=== PATIENT | male | born 1980 | race Caucasian/White ===

== ENCOUNTER 2024-11-04 08:57 | Outpatient (OUT) | payer OTHER, SELFPAY ==
--- NOTE | 2024-11-04 09:07 | XR_ITS ---
The [address] [address] Patient Name: DOLLY PICHARDO MRN: [id number] date: 1980 Sex: M Assigned Patient Location: [facility] Current Patient Location: Accession/Order Number: [id number] Exam Date: 11/04/2024 09:15 Report Date: 11/05/2024 05:28 At the request of: GENARO PALMER Procedure: XR lumbar spine min 4V EXAMINATION: XR lumbar spine min 4V HISTORY: Low Back Pain COMPARISON: No relevant comparison available. FINDINGS: BONES: Mild degenerative facet arthropathy L4-L5, L5-S1. No significant spondylosis, scoliosis, fracture, or visible bony lesion. DISC SPACES: No significant disc height narrowing, subluxation, or endplate abnormality. PARASPINOUS: Negative. No paraspinous abnormality is seen. OTHER: Negative. XR/XR lumbar spine min 4V IMPRESSION: 1. Minimal degenerative facet arthropathy of the lower lumbar spine. 2. Consider MRI for further evaluation if symptoms persist. Electronically authenticated by: SEKOU STANLEY Date: 11/05/2024 05:28
== END 2024-11-04 08:58 | disposition home or self-care (01) ==
LOC: LAB 09:00 → RAD 09:04
PROVIDERS: PCP Nurse Practitioner Family; Visit Provider Nurse Practitioner Family
DX: M54.50 Low back pain, unspecified (principal)
CPT/HCPCS: 72110

== ENCOUNTER 2024-11-10 12:56 | Outpatient (RCR) | payer OTHER, SELFPAY | END 2024-12-08 08:10 | disposition home or self-care (01) | LOC: PT 12:56 | PROVIDERS: PCP Nurse Practitioner Family; Visit Provider Nurse Practitioner Family | DX: M54.50 Low back pain, unspecified (principal) | CPT/HCPCS: 97012; 97014; 97035; 97110; 97161 ==

== ENCOUNTER 2024-12-28 13:44 | Outpatient (OUT) | payer OTHER, SELFPAY ==
--- NOTE | 2024-12-28 | CONS_ITS ---
CONSULTATION DATE: 12/28/2024 TO: ROSA HowellP-C CHIEF COMPLAINT: Includes severe left sided lower back pain. HISTORY OF PRESENT ILLNESS: Review of systems, past medical/surgical history were obtained and documented on the health questionnaire and is available upon request. He is a 44-year-old male, reports having pain for several years. It occurred spontaneously, increased gradually to its present state. He reports the pain as being presently between 4-7/10 in severity, described as a deep aching pain with an occasional sharp shooting component. He described two different kinds of pain. He describes the pain in his left lower extremity as being a deep aching pain, which is exacerbated mainly when walking for prolonged periods of time. He reports having left lower back pain, which he describes as being quite sharp, and exacerbated primarily when working and performing twisting maneuvers with his trunk. Overall, he rates the pain as being 4-7/10. Denies any change in bowel and bladder habits or new sensorimotor changes in his lower extremities. His MARCO on today?s visit was 50%. MEDICATIONS: He is unable to tolerate ibuprofen secondary to GI distress. He uses Tylenol as well as marijuana on occasion. He completed physical therapy one month ago, and he reports this offered him a marginal reduction in his pain symptoms. EXAM: His examination is notable for patient having no clinical radiculopathy or myelopathy involving his lower extremity on today?s visit, but did have severe pain with lumbar facet joint loading maneuvers occurring bilaterally, worse on his left side, at L4-5 and L5-S1. He had positive left sided pelvic rock test and Gaenslen?s maneuver and FABERs sign with tenderness along his left SI joint with significant myalgia of his left gluteus medius with spasm. IMPRESSION: Our impression is patient appears to have chronic pain secondary to multiple etiologies: Lumbosacral spondylosis, facet joint loading pain clinically, and left sided L4-5 and L5-S1 myalgia with myofascial spasm of his gluteus medius. RECOMMENDATIONS: I recommend he start baclofen 10 mg pills, half to two and to proceed with diagnostic left sided L4-5, L5-S1 medial branch block under fluoroscopic guidance. As part of providing excellent, safe, comprehensive care, the following was completed at our patient's visit: 1. A medication reconciliation and review to ensure accurate knowledge of current/active medications, including asking our patients to inform us about any qwps-sxo-qbfeloa medications or herbal remedies/nutritional supplements/alternative remedies. 2. A review to specifically ensure our patients have had annual screening for: elevated body mass index (BMI, see intake chart for exact total), tobacco use, screening for depression, and screening for unhealthy alcohol use. When screening is concerning, patients are provided with education and the specific recommendation to discuss the concerning health issue and treatment options with their primary care provider VALENCIA
--- OUTSIDE RECORDS SUMMARY | 2024-12-28 13:49 | XMS_ITS | CCD ---
Author Organization [facility] [employer] [facility] Problems Problem Classification Problem Date Documented Da te Episodic/Chronic Conditions associated with dizziness or vertigo (3 sources) Dizziness; Translations: [Dizziness and giddiness] 05-05-2024 Episodic Malaise and fatigue (3 sources) Fatigue; Translations: [Other fatigue] 05-05-2024 Episodic Nonspecific chest pain (3 sources) Tight chest; Translations: [Other chest pain] 05-05-2024 Episodic Other screening for suspected conditions (not mental disorders or infectious disease) (3 sources) Patient encounter status; Translations: [Encounter for screening for lipoid disorders] 05-05-2024 Episodic Residual codes; unclassified (2 sources) Family history of cardiac disorder; Translations: [Family history of ischemic heart disease and other diseases of the circulatory system] 05-05-2024 Episodic Residual codes; unclassified (1 source) Family history of ischemic heart disease and other diseases of the circulatory system; Translations: [Family history of other cardiovascular diseases] 05-05-2024 Episodic Spondylosis; intervertebral disc disorders; other back problems (2 sources) Degeneration of lumbar intervertebral disc; Translations: [Degeneration of intervertebral disc of lumbar region] 12-09-2024 Chronic Spondylosis; intervertebral disc disorders; other back problems (4 sources) Low back pain; Translations: [Low back pain] 05-05-2024 Episodic Vital Signs Date Time Vital Sign Value Performing Clinician Bea cisneros 12-09-2024 12:57-0500 Body height 186.69 cm [facility] 12-09-2024 12:57-0500 Body mass index (BMI) [Ratio] 25 kg/m2 [facility] 12-09-2024 12:57-0500 Body temperature 96.2 [degF] [facility] 12-09-2024 12:57-0500 Body weight 87.2 kg [facility] 12-09-2024 12:57-0500 Diastolic blood pressure 84 mm[Hg] [facility] 12-09-2024 12:57-0500 Heart rate 130 /min [facility] 12-09-2024 12:57-0500 SaO2% (BldA) [Mass fraction] 96 % [facility] 12-09-2024 12:57-0500 Systolic blood pressure 134 mm[Hg] [facility] 05-05-2024 08:21-0400 Body height 186.69 cm [facility] 05-05-2024 08:21-0400 Body mass index (BMI) [Ratio] 26.5 kg/m2 [facility] 05-05-2024 08:21-0400 Body weight 92.53 kg [facility] 05-05-2024 08:21-0400 Diastolic blood pressure 82 mm[Hg] [facility] 05-05-2024 08:21-0400 Heart rate 80 /min [facility] 05-05-2024 08:21-0400 SaO2% (BldA) [Mass fraction] 98 % [facility] 05-05-2024 08:21-0400 Systolic blood pressure 146 mm[Hg] [facility] Encounters Encounter Date Encounter Type Care Provider Facility Start: 12-09-2024 End: 12-09-2024 ambulatory [facility] Work Phone: Start: 12-09-2024 End: 12-09-2024 Patient encounter procedure [facility] Work Phone: Start: 05-05-2024 End: 05-05-2024 ambulatory [facility] Work Phone: Start: 05-05-2024 End: 05-05-2024 Patient encounter procedure [facility] Work Phone: Plan of Treatment Date Care Activity Detail Author Start: 12-09-[address] [facility] Work Phone: Comprehensive metabo lic 2000 panel - Serum or Plasma [facility] MR Lumbar spine WO a nd W contrast IV [facility] Patient Education Low back pain in adults [facility] Work Phone: Patient referral [facility] Work Phone: XR Lumbar spine GE 4 Views F [facility] Payers Date Payer Category Payer Policy ID Medicaid [id number] d1 [id number] Social History Date Type Detail Facility Start: 05-05-2024 End: 05-05-2024 Tobacco smoking status NHIS Ex-smoker (finding) [facility] Start: 1980 Sex Assigned At Male F [facility] Start: 12-09-2024 Sex Male (finding) [facility] Evaluation note Note Date & Type Note Facility Evaluation note Diagnosis Onset Date Chest tightness acute Dizziness acute Family history of heart disease acute Fatigue acute Low back pain acute Screening for lipid disorders acute [facility] Work Phone: Evaluation note Note Date & Type Note Facility Evaluation note Diagnosis Onset Date Resolution Degenerative lumbar disc acute December 09 12:54pm Low back pain acute December 092024 12:54pm [facility] Work Phone: Hospital Discharge instructions Note Date & Type Note Facility Hospital Discharge instructions Ambulatory OrdersReferral to Pain Management Time Frame: 12/09/24, Location: None SelectedMR lumbar spine wo/w con Time Frame: 12/09/24, Location: Determined By Patient [facility] Work Phone: Chief Complaint and Reason for Visit Chief Complaint Establish Reason for Visit Chest tightness Dizziness Family history of heart disease Fatigue Low back pain Screening for lipid disorders Chief Complaint Admit Date follow up from PT December 09, 2024 12:54pm Reason for Visit Admit Date Degenerative lumbar disc December 09, 2024 12:54pm Low back pain December 09, 2024 12:54pm Advance Directives Advance Directive Response Recorded Date/ Time Advance Directives No April 29 2:13pm Advance Directive Response Recorded Date/ Time Advance Directives No April 29 1:13pm Additional Source Comments Care Teams (unrecognized sec tion and content) Team Status: Active Member Role Status Dates Tonya Nova APRN DESIGN INTERN-C Primary Care Provider Active Team Status: Inactive Member Role Status Dates Tonya Nova APRN DESIGN INTERN-C Primary Care Provider, Attending Provider Active Start: May 05, 2024 End: May 05, 2024 Team Status: Inactive Member Role Status Dates Tonya Nova APRN DESIGN INTERN-C Primary Care Provider, Attending Provider Active Start: December 09, 2024 End: December 09, 2024 Goals (unrecognized section and content) Goals may be documented in a n alternate sectionGoals may be documented in an alternate section FOR RECORDS PERTAINING TO PATIENTS WHO ARE OR HAVE BEEN ENROLLED IN A CHEMICAL DEPENDENCY/SUBSTANCEABUSE PROGRAM, SOME INFORMATION MAY BE OMITTED. This clinical summary was aggregated from multiple sources. Caution should be exercised in using it in the provision of clinical care. This summary normalizes information from multiple sources, and as a consequence, information in this document may materially change the coding, format and clinical context of patient data. In addition, data may be omitted in some cases. CLINICAL DECISIONS SHOULD BE BASED ON THE PRIMARY CLINICAL RECORDS. [facility]. provides no warranty or guarantee of the accuracy or completeness of information in this document.
== END 2024-12-28 13:45 | disposition home or self-care (01) ==
LOC: PM 13:44
PROVIDERS: PCP Nurse Practitioner Family; Visit Provider Anesthesiology Pain Medicine
DX: M47.816 Spondylosis without myelopathy or radiculopathy, lumbar region (principal); M79.18 Myalgia, other site
CPT/HCPCS: G0463

== ENCOUNTER 2025-01-11 08:46 | Day surgery (SDC) | payer OTHER, SELFPAY ==
--- OUTSIDE RECORDS SUMMARY | 2025-01-11 09:02 | XMS_ITS | CCD ---
Author Organization [facility] [employer] [facility] Problems Problem Classification Problem Date Documented [...] cisneros 12-09-2024 12:57-0500 Body height 186.69 cm [facility] 12-09-2024 12:57-0500 Body mass index (BMI) [Ratio] 25 kg/m2 [facility] 12-09-2024 12:57-0500 Body temperature 96.2 [degF] [facility] 12-09-2024 12:57-0500 Body weight 87.2 kg [facility] 12-09-2024 12:57-0500 Diastolic blood pressure 84 mm[Hg] [facility] 12-09-2024 12:57-0500 Heart rate 130 /min [facility] 12-09-2024 12:57-0500 SaO2% (BldA) [Mass fraction] 96 % [facility] 12-09-2024 12:57-0500 Systolic blood pressure 134 mm[Hg] [facility] 05-05-2024 08:21-0400 Body height 186.69 cm [facility] 05-05-2024 08:21-0400 Body mass index (BMI) [Ratio] 26.5 kg/m2 [facility] 05-05-2024 08:21-0400 Body weight 92.53 kg [facility] 05-05-2024 08:21-0400 Diastolic blood pressure 82 mm[Hg] [facility] 05-05-2024 08:21-0400 Heart rate 80 /min [facility] 05-05-2024 08:21-0400 SaO2% (BldA) [Mass fraction] 98 % [facility] 05-05-2024 08:21-0400 Systolic blood pressure 146 mm[Hg] [facility] Encounters Encounter Date Encounter Type Care Provider Facility Start: 12-09-2024 End: 12-09-2024 ambulatory [facility] Work Phone: Start: 12-09-2024 End: 12-09-2024 Patient encounter procedure [facility] Work Phone: Start: 05-05-2024 End: 05-05-2024 ambulatory [facility] Work Phone: Start: 05-05-2024 End: 05-05-2024 Patient encounter procedure [facility] Work Phone: Plan of Treatment Date Care Activity Detail Author Start: 12-09-2024 Patient referral [facility] Work Phone: Comprehensive metabo lic 2000 panel - Serum or Plasma [facility] MR Lumbar spine WO a nd W contrast IV [facility] Patient Education Low back pain in adults [facility] Work Phone: Patient referral [facility] Work Phone: XR Lumbar spine GE 4 Views F [facility] Payers Date Payer Category Payer Policy ID Medicaid [id number] d1 [id number] Social History Date Type Detail Facility Start: 05-05-2024 End: 05-05-2024 Tobacco smoking status NHIS Ex-smoker (finding) [facility] Start: 1980 Sex Assigned At Male F [facility] Start: 12-09-2024 Sex Male (finding) [facility] Evaluation note Note Date & Type Note Facility Evaluation note Diagnosis Onset Date Chest tightness acute Dizziness acute Family history of heart disease acute Fatigue acute Low back pain acute Screening for lipid disorders acute [facility] Work Phone: Evaluation note Note Date & Type Note Facility Evaluation note Diagnosis Onset Date Resolution Degenerative lumbar disc acute December 09 12:54pm Low back pain acute December 092024 12:54pm [facility] Work Phone: Hospital Discharge instructions Note Date & Type Note Facility Hospital Discharge instructions Ambulatory OrdersReferral to Pain Management Time Frame: 12/09/24, Location: None SelectedMR lumbar spine wo/w con Time Frame: 12/09/24, Location: Determined By Patient [facility] Work Phone: Chief Complaint and Reason [...] Member Role Status Dates Tonya Nova APRN REQUIREMENTS MANAGER-C Primary Care Provider Active Team Status: Inactive Member Role Status Dates Tonya Nova APRN REQUIREMENTS MANAGER-C Primary Care Provider, Attending Provider Active Start: May 05, 2024 End: May 05, 2024 Team Status: Inactive Member Role Status Dates Tonya Nova APRN REQUIREMENTS MANAGER-C Primary Care Provider, Attending Provider Active Start: [...] BE BASED ON THE PRIMARY CLINICAL RECORDS. [facility] [employer] [facility]. provides no warranty or guarantee of the accuracy or completeness of information in this document.
[2025-01-11 09:18] VITALS: BP 120/78; PULSE 83; TEMP 36.7; O2SAT 96
[2025-01-11 09:47] VITALS: BP 135/83; BP 138/89; PULSE 64; PULSE 83; O2SAT 99
[2025-01-11] MEDS: BUPIVACAINE HCL 0.25% PF 25 MG/10 ML VIAL 4 ML INJ (09:50)
--- NOTE | 2025-01-11 09:50 | W.PM.PROCNOT ---
Date of procedure: 01/11/25 Pre-op diagnosis: Pain due to lumbar spondylosis without myelopathy Post-op diagnosis: same as pre-op Procedure: Procedure: Left L4-5, L5-S1 medial branch block Medications: Bupivacaine 0.25% 6cc The patient was seen and examined in the preoperative holding area.? An informed consent was obtained and placed on the chart.? The patient was brought to the medical procedure unit and placed in the prone position.? A timeout was completed verifying correct patient, procedure site, positioning, plan, and special equipment.? Using aseptic technique, the needle was placed at left L4. Under direct fluoroscopic visualization a Quincke-tipped spinal needle was advanced to the junction of the superior articulating process with the transverse process at the designated medial branch segment.? Preceded by negative aspiration, the above-mentioned injectate was placed in 1 mL aliquots.? The procedure was completed at left L5, S1.? The needle was removed and insertion site was covered.? The patient was taken to the postprocedural recovery area and monitored for an appropriate length of time before found suitable for discharge in the company of a responsible adult. Anesthesia: Local Surgeon: Herbert Rincon Pathology: none sent Condition: stable Disposition: no change
[2025-01-11] MEDS: LIDOCAINE HCL 2% 400 MG/20 ML MDV INJ (09:51)
== END 2025-01-11 09:55 | disposition home or self-care (01) ==
PROVIDERS: PCP Nurse Practitioner Family; Visit Provider Anesthesiology
DX: M47.816 Spondylosis without myelopathy or radiculopathy, lumbar region (principal); M54.50 Low back pain, unspecified
CPT/HCPCS: 64493; 64494; J0665

== ENCOUNTER 2025-01-13 08:16 | Outpatient (OUT) | payer OTHER, SELFPAY ==
--- OUTSIDE RECORDS SUMMARY | 2025-01-13 08:21 | XMS_ITS | CCD ---
Author Organization [facility] [employer] [facility] Problems Problem Classification Problem Date Documented [...] cisneros 12-09-2024 12:57-0500 Body height 186.69 cm [facility] 12-09-2024 12:57-0500 Body mass index (BMI) [Ratio] 25 kg/m2 [facility] 12-09-2024 12:57-0500 Body temperature 96.2 [degF] [facility] 12-09-2024 12:57-0500 Body weight 87.2 kg [facility] 12-09-2024 12:57-0500 Diastolic blood pressure 84 mm[Hg] [facility] 12-09-2024 12:57-0500 Heart rate 130 /min [facility] 12-09-2024 12:57-0500 SaO2% (BldA) [Mass fraction] 96 % [facility] 12-09-2024 12:57-0500 Systolic blood pressure 134 mm[Hg] [facility] 05-05-2024 08:21-0400 Body height 186.69 cm [facility] 05-05-2024 08:21-0400 Body mass index (BMI) [Ratio] 26.5 kg/m2 [facility] 05-05-2024 08:21-0400 Body weight 92.53 kg [facility] 05-05-2024 08:21-0400 Diastolic blood pressure 82 mm[Hg] [facility] 05-05-2024 08:21-0400 Heart rate 80 /min [facility] 05-05-2024 08:21-0400 SaO2% (BldA) [Mass fraction] 98 % [facility] 05-05-2024 08:21-0400 Systolic blood pressure 146 mm[Hg] [facility] Encounters Encounter Date Encounter Type Care Provider Facility Start: 12-09-2024 End: 12-09-2024 ambulatory [facility] Work Phone: Start: 12-09-2024 End: 12-09-2024 Patient encounter procedure [facility] Work Phone: Start: 05-05-2024 End: 05-05-2024 ambulatory [facility] Work Phone: Start: 05-05-2024 End: 05-05-2024 Patient encounter procedure [facility] Work Phone: Plan of Treatment Date Care Activity Detail Author Start: 12-09-2024 Patient referral [facility] Work Phone: Comprehensive metabo lic 2000 panel - Serum or Plasma [facility] MR Lumbar spine WO a nd W contrast IV [facility] Patient Education Low back pain in adults [facility] Work Phone: Patient referral [facility] Work Phone: XR Lumbar spine GE 4 Views F [facility] Payers Date Payer Category Payer Policy ID Medicaid [id number] d1 [id number] Social History Date Type Detail Facility Start: 05-05-2024 End: 05-05-2024 Tobacco smoking status NHIS Ex-smoker (finding) [facility] Start: 1980 Sex Assigned At Male F [facility] Start: 12-09-2024 Sex Male (finding) [facility] Evaluation note Note Date & Type Note Facility Evaluation note Diagnosis Onset Date Chest tightness acute Dizziness acute Family history of heart disease acute Fatigue acute Low back pain acute Screening for lipid disorders acute [facility] Work Phone: Evaluation note Note Date & Type Note Facility Evaluation note Diagnosis Onset Date Resolution Degenerative lumbar disc acute December 09 12:54pm Low back pain acute December 092024 12:54pm [facility] Work Phone: Hospital Discharge instructions Note Date & Type Note Facility Hospital Discharge instructions Ambulatory OrdersReferral to Pain Management Time Frame: 12/09/24, Location: None SelectedMR lumbar spine wo/w con Time Frame: 12/09/24, Location: Determined By Patient [facility] Work Phone: Chief Complaint and Reason [...] Member Role Status Dates Tonya Nova APRN GRIP-C Primary Care Provider Active Team Status: Inactive Member Role Status Dates Tonya Nova APRN GRIP-C Primary Care Provider, Attending Provider Active Start: May 05, 2024 End: May 05, 2024 Team Status: Inactive Member Role Status Dates Tonya Nova APRN GRIP-C Primary Care Provider, Attending Provider Active Start: [...] BE BASED ON THE PRIMARY CLINICAL RECORDS. [facility] [employer] [facility]. provides no warranty or guarantee of the accuracy or completeness of information in this document.
--- NOTE | 2025-01-13 08:28 | P.CN_ITS ---
Consult Note: HPI Data of Consult Patient: known to practice within the last 3 years Requesting Physician: Miriam García NP Primary Care Provider: GENARO PALMER Consult Narrative Reason for consult: f/u Narrative: Juan Manuel rascon pleasant 44 year old male presents for evaluation and management of chronic left sided low back and hip pain. prior lumbar xray consistent with L4,5,S1 facet arthropathy. pt has failed to benefit from > 6 weeks of PT, provider guided HEP, stretching, yoga, heat, ice, tylenol, cannot take NSAIDs due to GI upset. currently utilizing tylenol, THC, and baclofen 10mg HS PRN with mild relief. recently underwent left L4-5 L5-S1 MBB #1 with >80% improvement in low back pain and pain with activity. pain up to 10/10 preop op, post op pain 1-2/10. today pain 4-5/10 stiff stab increased with twisting, pushing, pulling, standing, walking, bending, lifting, and bending. pain improved with lying, sitting, and heat. cc:: CC: Miriam García NP Review of Systems ROS Status of ROS 10 or more systems reviewed and unremark able except as noted in history and below Musculoskeletal Reports: back pain PFSH [facility] Medical History (Updated 01/13/25 @ 08:42 by Miriam García NP) Osteoarthritis ?M19.90 - Unspecified osteoarthritis, unspecified site (ICD-10) Hypertension ?I10 - Essential (primary) hypertension (ICD-10) Depression ?F32.A - Depression, unspecified (ICD-10) Meds Home Medications and Allergies Home Medications ?Medication ?Instructions ?Recorded ?Confirmed ?Type baclofen 10 mg tablet 20 mg PO .HS PRN muscle spasm 12/28/24 01/11/25 History Allergies Allergy/AdvReac Type Severity Reaction Status Date / Time No Known Drug Allergies Allergy Verified 01/11/25 09:24 Exam Constitutional Documenting provider has reviewed patient's vital signs: yes Common normals: no apparent distress, oriented x3, healthy appearing, alert and well nourished General appearance: cooperative HENMT Common normals: normocephalic, hearing grossly normal bilaterally and moist oral mucous membranes Head and scalp: normocephalic Eye Common normals: PERRL Pupil: PERRL Neck & C-Spine Common normals: full ROM General: normal visual inspection Chest Common normals: inspection of chest normal Respiratory Common normals: normal respiratory effort, no retractions and no use of acces gwen muscles Back & Pelvis Lumbar spine/lower back: ROM limited, pain with ROM, lumbar spinal tenderness Lumbar spinal tenderness location: L4 and L5 and straight leg raise negative bilaterally; no paraspinal muscle spasm Sacroiliac joints: SI joint(s) abnormal SI joint details: tender to palpation (left) Other: positive facet loading L4,5,S1 strength 5/5 in BLE sensation intact BLE Neuro Common normals: oriented x3, CN's II-XII intact bilaterally, moves all extremities, no focal motor deficits, no sensory deficits noted and deep tendon reflexes 2+ bilaterally Sensorium/orientation: alert Motor exam: strength 5/5 throughout and no movement abnormalities noted Psych Common normals: mental status grossly normal, thought process normal, cooperative, affect normal, speech normal and activity/motor behavior normal Speech: normal speech Thought process: normal thought process Results Additional Findings Additional findings: If on a controlled substance or opioids, I have checked an OARRS report on this patient and there are no aberrancies noted in the prescribing history.??If on a controlled substance or opioid a drug screen was completed and reviewed within the last year, and if there has not been a drug screen completed we ordered one today to monitor higher risk, state monitored pain medication use. As part of providing excellent, safe, comprehensive care, the following was completed at our patient's visit: 1. A medication reconciliation and review to ensure accurate knowledge of current/active medications, including asking our patients to inform us about any [id number] medications or herbal remedies/nutritional supplements/alternative remedies. 2. A review to specifically ensure our patients have had annual screening for screening for depression, screening for tobacco use, and screening for unhealthy alcohol use. For concerning screenings had a discussion with the patient, provided patient education, and recommended follow-up with primary care provider when appropriate. If patient noted with a risk of falling, they received education on strength, gait, and balance training to prevent future risk of falling. Portions of this note may have been carried over from the previous visit and updated as appropriate. Please note this office utilizes paper charting in addition to the electronic medical record. A list of current medications, vitals, and PMH is available there as the clinical staff [facility] do not have access to [employer] charting during the clinic day operations. As part of providing quality comprehensive care the current medications, vitals, and PMH were reviewed in the paper chart. Assessment and Plan Assessment and Plan (1) Lumbar spondylosis: Assessment and Plan: The patient has had over 3 months of moderate to severe left sided low back and hip pain with functional impairment and inadequate response to conservative care including NSAIDS (unless there are contraindication such as concurrent blood thinners), multiple oral or topical pain medications, and home exercise program/physical therapy.? Patient has completed >6 weeks of guided home exercise program and/or formal physical therapy program without relief of their symptoms.? I have reviewed the imaging of the lumbar spine and no red flags were identified.? The imaging reveals radiographic findings consistent with lumbar spondylosis The Oswestry Disability Index was completed, and the patient scored a 53%.? The patient noted the following:?? moderate to severe pain with standing, walking, sleep, social life, and travel. pain impacting ADLs We discussed the risks and benefits of the procedure with the patient, and we are NOT planning on using sedation as outlined in the guidelines from Medicare unless there is a documented reason that sedation would be strongly recommended.??The procedure will be completed with fluoroscopic guidance.? (2) Myalgia: (3) Sacroiliitis: Plan left L4-5 L5-S1 MBB #2 working towards RFA continue current medications continue HEP and stretching as tolerated f/u after injection
== END 2025-01-13 08:17 | disposition home or self-care (01) ==
LOC: PM 08:17
PROVIDERS: PCP Nurse Practitioner Family; Visit Provider Nurse Practitioner
DX: M47.816 Spondylosis without myelopathy or radiculopathy, lumbar region (principal); M79.18 Myalgia, other site; M46.1 Sacroiliitis, not elsewhere classified
CPT/HCPCS: G0463

== ENCOUNTER 2025-02-15 08:50 | Day surgery (SDC) | payer OTHER, SELFPAY ==
[2025-02-15 09:05] VITALS: BP 117/82; PULSE 79; TEMP 36.3; O2SAT 98
[2025-02-15 09:58] VITALS: BP 134/74; PULSE 88; O2SAT 98
[2025-02-15 09:59] VITALS: BP 129/86; PULSE 86; O2SAT 98
[2025-02-15] MEDS: LIDOCAINE HCL 2% 400 MG/20 ML MDV INJ (10:00)
[2025-02-15] MEDS: BUPIVACAINE HCL 0.25% PF 25 MG/10 ML VIAL 4 ML INJ (10:00)
--- NOTE | 2025-02-15 10:02 | W.PM.PROCNOT ---
Date of procedure: 02/15/25 Pre-op diagnosis: Pain due to lumbar spondylsosis without myelopathy Post-op diagnosis: same as pre-op Procedure: Procedure: Left L4-5, L5-S1 medial branch block Medications: Bupivacaine 0.25% 3cc The patient was seen and examined in the preoperative holding area.? An informed consent was obtained and placed on the chart.? The patient was brought to the medical procedure unit and placed in the prone position.? A timeout was completed verifying correct patient, procedure site, positioning, plan, and special equipment.? Using aseptic technique, the needle was placed at left L4. Under direct fluoroscopic visualization a Quincke-tipped spinal needle was advanced to the junction of the superior articulating process with the transverse process at the designated medial branch segment.? Preceded by negative aspiration, the above-mentioned injectate was placed in 1 mL aliquots.? The procedure was completed at left L5, S1.? The needle was removed and insertion site was covered.? The patient was taken to the postprocedural recovery area and monitored for an appropriate length of time before found suitable for discharge in the company of a responsible adult. Anesthesia: Local Surgeon: Herbert Rincon Pathology: none sent Condition: stable Disposition: no change
== END 2025-02-15 10:05 | disposition home or self-care (01) ==
PROVIDERS: PCP Nurse Practitioner Family; Visit Provider Anesthesiology
DX: M47.816 Spondylosis without myelopathy or radiculopathy, lumbar region (principal); M54.50 Low back pain, unspecified
CPT/HCPCS: 64493; 64494; J0665

== ENCOUNTER 2025-02-17 11:22 | Outpatient (OUT) | payer OTHER, SELFPAY ==
--- NOTE | 2025-02-17 11:45 | P.CN_ITS ---
Consult Note: HPI Data of Consult Patient: known to practice within the last 3 years Requesting Physician: Miriam García NP Primary Care Provider: GENARO PALMER Consult Narrative Reason for consult: f/u Narrative: Juan Manuel Livingston a pleasant 44 year old male presents for evaluation and management of chronic left sided low back and hip pain. prior lumbar xray consistent with L4,5,S1 facet arthropathy. pt has failed to benefit from > 6 weeks of PT, provider guided HEP, stretching, yoga, heat, ice, tylenol, cannot take NSAIDs due to GI upset. currently utilizing tylenol, THC, and baclofen 10mg HS PRN with mild relief. recently underwent left L4-5 L5-S1 MBB #1 and #2 with >80% improvement in low back pain and pain with activity. pain up to 10/10 preop op, post op pain 1-2/10. today pain 7/10 aching throbbing stiff stab increased with twisting, pushing, pulling, standing, walking, bending, lifting, and bending. pain improved with lying, sitting, and heat. cc:: CC: Miriam García NP Review of Systems ROS Status of ROS 10 or more systems reviewed and unremark able except as noted in history and below Musculoskeletal Reports: back pain PFSH PFSH Medical History (Updated 02/17/25 @ 11:48 by Miriam García NP) Osteoarthritis ?M19.90 - Unspecified osteoarthritis, unspecified site (ICD-10) Hypertension ?I10 - Essential (primary) hypertension (ICD-10) Depression ?F32.A - Depression, unspecified (ICD-10) Surgical History (Updated 01/15/25 @ 15:10 by Elina Lucero) History of tonsillectomy and adenoidectomy ?Z90.89 - Acquired absence of other organs (ICD-10) Meds Home Medications and Allergies Home Medications ?Medication ?Instructions ?Recorded ?Confirmed ?Type baclofen 10 mg tablet 20 mg PO .HS PRN muscle spas m 12/28/24 02/15/25 History Allergies Allergy/AdvReac Type Severity Reaction Status Date / Time No Known Drug Allergies Allergy Verified 02/15/25 09:04 Exam Constitutional Documenting provider has reviewed patient's vital signs: yes Common normals: no apparent distress, oriented x3, healthy appearing, alert and well nourished General appearance: cooperative HENMT Common normals: normocephalic, hearing grossly normal bilaterally and moist oral mucous membranes Head and scalp: normocephalic Eye Common normals: PERRL Pupil: PERRL Neck & C-Spine Common normals: full ROM General: normal visual inspection Chest Common normals: inspection of chest normal Respiratory Common normals: normal respiratory effort, no retractions and no use of accessory muscles Back & Pelvis Lumbar spine/lower back: ROM limited, pain with ROM, lumbar spinal tenderness Lumbar spinal tenderness location: L4 and L5 and straight leg raise positive left; no paraspinal muscle spasm Sacroiliac joints: SI joint(s) abnormal SI joint details: tender to palpation (left) Other: positive facet loading L4,5,S1 decreased sensation to left L4,5,S1 strength 3.5/5 in LLE and 5/5 in RLE Neuro Common normals: oriented x3, CN's II-XII intact bilaterally, moves all extremities, no focal motor deficits, no sensory deficits noted and deep tendon reflexes 2+ bilaterally Sensorium/orientation: alert Motor exam: strength 5/5 throughout and no movement abnormalities noted Psych Common normals: mental status grossly normal, thought process normal, cooperative, affect normal, speech normal and activity/motor behavior normal Speech: normal speech Thought process: normal thought process Results Additional Findings Additional findings: If on a controlled substance or opioids, I have checked an OARRS report on this patient and there are no aberrancies noted in the prescribing history.??If on a controlled substance or opioid a drug screen was completed and reviewed within the last year, and if there has not been a drug screen completed we ordered one today to monitor higher risk, state monitored pain medication use. As part of providing excellent, safe, comprehensive care, the following was completed at our patient's visit: 1. A medication reconciliation and review to ensure accurate knowledge of current/active medications, including asking our patients to inform us about any [id number] medications or herbal remedies/nutritional supplements/alternative remedies. 2. A review to specifically ensure our patients have had annual screening for screening for depression, screening for tobacco use, and screening for unhealthy alcohol use. For concerning screenings had a discussion with the patient, provided patient education, and recommended follow-up with primary care provider when appropriate. If patient noted with a risk of falling, they received education on strength, gait, and balance training to prevent future risk of falling. Portions of this note may have been carried over from the previous visit and updated as appropriate. Please note this office utilizes paper charting in addition to the electronic mt dical record. A list of current medications, vitals, and PMH is available there as the clinical staff outside of myself do not have access to [employer] charting during the clinic day operations. As part of providing quality comprehensive care the current medications, vitals, and PMH were reviewed in the paper chart. Assessment and Plan Assessment and Plan (1) Lumbar spondylosis: Assessment and Plan: The patient has had over 3 months of moderate to severe left sided low back and hip pain with functional impairment and inadequate response to conservative care including NSAIDS (unless there are contraindication such as concurrent blood thinners), multiple oral or topical pain medications, and home exercise program/physical therapy.? Patient has completed >6 weeks of guided home exercise program and/or formal physical therapy program without relief of their symptoms.? I have reviewed the imaging of the lumbar spine and no red flags were identified.? The imaging reveals radiographic findings consistent with lumbar spondylosis The Oswestry Disability Index was completed, and the patient scored a 58%.? The patient noted the following:?? moderate to severe pain with standing, walking, sleep, social life, and travel. pain impacting ADLs (2) Myalgia: (3) Sacroiliitis: (4) Lumbar radiculopathy: Assessment and Plan: significant increase in radicular pain and decreased strength as noted above (5) Lumbar stenosis with neurogenic claudication: (6) Claustrophobia: Plan defer lumbar RFA at this time with severe radiculopathy and lumbar stenosis with NC. update lumbar MRI without contrast to assess lumbar radiculopathy and lumbar stenosis with NC. pt reports severe anxiety and claustraphobia, could not tolerate prior MRIs with oral sedatives. will order lumbar MRI without contrast with IV sedation. continue current medications. f/u in clinic for MRI review
== END 2025-02-17 11:23 | disposition home or self-care (01) ==
LOC: PM 11:23
PROVIDERS: PCP Nurse Practitioner Family; Visit Provider Nurse Practitioner
DX: M47.816 Spondylosis without myelopathy or radiculopathy, lumbar region (principal); M79.10 Myalgia, unspecified site; M46.1 Sacroiliitis, not elsewhere classified; M54.16 Radiculopathy, lumbar region; M48.062 Spinal stenosis, lumbar region with neurogenic claudication; F40.240 Claustrophobia
CPT/HCPCS: G0463